=== PATIENT | female | born 1955 | race Caucasian/White ===

== ENCOUNTER 2018-04-23 05:40 | Day surgery (SDC) | payer OTHER | END 2018-04-23 09:20 | disposition home or self-care (01) | LOC: AMB-ENDOS 05:40 | DX: D12.9 Benign neoplasm of anus and anal canal (principal); K57.30 Diverticulosis of large intestine without perforation or abscess without bleeding; K64.0 First degree hemorrhoids; Z12.11 Encounter for screening for malignant neoplasm of colon ==